=== PATIENT | female | born 1950 | race Native Hawaiian/Other Pacific Islander ===

== ENCOUNTER → 2016-09-30 | Outpatient (CLI) | payer MEDICARE, OTHER ==
--- NOTE | 2016-10-01 12:22 | RAD ---
EXAM DESCRIPTION: Pelvis CLINICAL HISTORY: SEGMENTAL AND SOMATIC DYSFUNCTION OF PELVIC REGION COMPARISON: None. IMPRESSION: Single AP supine view of the pelvis shows no evidence of acute fracture, focal bone destruction, or joint dislocation. Mild narrowing of the joints bilaterally suggests mild osteoarthritic-type changes. Degenerative changes involving the mid to inferior aspect of the sacroiliac joints is seen bilaterally. Electronically signed by: Cipriano Crawley MD 10/01/2016 12:20 PM CDT
--- NOTE | 2016-10-01 13:05 | RAD ---
EXAM DESCRIPTION: Lumbar Spine 3 Views CLINICAL HISTORY: 66 years Female, Segmental and somatic dysfunction of lumbar region COMPARISON: None. FINDINGS: 3 views of the lumbar spine show vertebral body heights to be maintained. There is mild disc space narrowing at L3-4. Moderate disc space narrowing is seen at L4-5 with to 7 mm anterolisthesis of L4 on L5. Facet hypertrophic and degenerative changes at this level are noted. There is also at least mild facet arthropathy at L5-S1. Moderate vascular calcifications are seen. Surgical clips from cholecystectomy are noted. IMPRESSION: Disc disease and facet arthropathy with grade 1 spondylolisthesis at L4-5 is seen. Facet arthropathy at L5-S1 is seen. Electronically signed by: Cipriano Crawley MD 10/01/2016 1:04 PM CDT
== END | disposition home or self-care (01) ==
LOC: RAD 15:07
PROVIDERS: ATTEND Family Medicine
DX: M99.03 Segmental and somatic dysfunction of lumbar region (principal); M99.05 Segmental and somatic dysfunction of pelvic region

== ENCOUNTER → 2016-10-05 | Outpatient (CLI) | payer MEDICARE, OTHER ==
--- NOTE | 2016-10-06 04:46 | MRI ---
Procedure: MR LUMBAR SPINE WITHOUT IV CONTRAST Exam Date: 10/05/2016 10:28 AM CDT Ordering Provider: MIRACLE GARCIA Clinical Indication: LOW BACK PAIN Comparison: None Technique: Multiplanar, multisequence MR images of the lumbar spine were obtained. Findings: No evidence of vertebral body compression deformity or acute fracture. Disc desiccation predominantly at L4-L5. Spinal cord terminates at the L1-L2 level and is normal in signal morphology. Cauda equina separate appropriately. T12-L1: Unremarkable. L1-L2: Unremarkable. L2-L3: Trace disc bulge without stenosis. L3-L4: Trace disc bulge with mild facet arthrosis. No stenosis. L4-L5: Advanced facet arthrosis with degenerative anterolisthesis. There is a midline facet synovial cyst without significant impingement on the thecal sac. There is broad-based disc uncovering. There is overall mild spinal canal stenosis and subarticular recess stenosis. Bilateral foramina are patent. L5-S1: Advanced facet arthrosis with periarticular bone marrow and soft tissue edema, right greater than left. No stenosis. Prevertebral and paravertebral soft tissues are unremarkable. Impression: Multilevel/multifactorial lumbar spondylosis greatest at the L4-L5 and L5-S1 level. There is degenerative anterolisthesis at L4-L5 as well as bone marrow and periarticular facet edema related to osteoarthritis at L5-S1 as outlined. Electronically signed by: Facundo Bender MD 10/06/2016 4:45 AM CDT
== END | disposition home or self-care (01) ==
LOC: MRI 10:13
PROVIDERS: ATTEND Family Medicine
DX: M47.896 Other spondylosis, lumbar region (principal)

== ENCOUNTER → 2016-10-07 | Outpatient (CLI) | payer MEDICARE, OTHER ==
--- NOTE | 2016-10-08 09:08 | US ---
EXAM DESCRIPTION: Abdomen sonogram complete CLINICAL HISTORY: Abdominal aortic aneurysm COMPARISON: [None.] FINDINGS: Gallbladder is surgically absent . Common bile duct measures 7-8 mm in the sweetie hepatis. Liver is normal in size and echotexture Pancreas is partially visualized, unremarkable. Spleen normal in size and echotexture. Visualized abdominal aorta and inferior vena cava are normal in size. Minimal atherosclerosis. No aneurysm Right kidney and left kidney are normal in size and echotexture IMPRESSION: No abdominal aortic aneurysm Unremarkable abdomen sonogram Electronically signed by: Gorge Enciso MD 10/08/2016 9:07 AM CDT
== END | disposition home or self-care (01) ==
LOC: US 08:17
PROVIDERS: ATTEND Family Medicine
DX: I71.4 Abdominal aortic aneurysm, without rupture (principal)

== ENCOUNTER → 2017-02-15 | Outpatient (CLI) | payer MEDICARE, OTHER | END | disposition home or self-care (01) | LOC: GMAL 15:33 | PROVIDERS: ATTEND Family Medicine | DX: E03.8 Other specified hypothyroidism (principal); D51.3 Other dietary vitamin B12 deficiency anemia ==

== ENCOUNTER → 2017-02-23 | Outpatient (CLI) | payer MEDICARE, OTHER | END | disposition home or self-care (01) | LOC: GMAL 14:21 | PROVIDERS: ATTEND Family Medicine | DX: D53.9 Nutritional anemia, unspecified (principal) ==

== ENCOUNTER → 2017-03-09 | Outpatient (CLI) | payer MEDICARE, OTHER | LOC: LAB.O 13:28 | PROVIDERS: ATTEND Family Medicine | DX: E83.119 Hemochromatosis, unspecified (principal) ==

== ENCOUNTER → 2017-04-07 | Outpatient (CLI) | payer MEDICARE, OTHER ==
--- NOTE | 2017-04-07 17:01 | CT ---
EXAM DESCRIPTION: Head w/wo Contrast CLINICAL HISTORY: 66 years Female, MIGRAINE WITH AURA, NOT INTRACTABLE, WITHOUT STATUS MIGRAINOSUS COMPARISON: None. TECHNIQUE: Transaxial images were obtained with and without intravenous contrast media. Sagittal and coronal reconstruction was performed.This exam was performed according to our departmental dose-optimization program, which includes automated exposure control, adjustment of the mA and/or kV according to patient size and/or use of iterative reconstruction technique. FINDINGS: Portions of the paranasal sinuses and the orbits as imaged are normal. The mastoid sinus air cells are clear. No mass lesions or mass effect are observed. The ventricles and cisternal spaces within range of normal. No white matter abnormality is detected. No abnormal enhancement is detected. IMPRESSION: Normal pre and post contrasted cerebral computed tomography. Electronically signed by: Dakota Pinto MD 04/07/2017 5:00 PM [facility]
== END ==
LOC: LAB.O 15:27
PROVIDERS: ATTEND Family Medicine
DX: G43.109 Migraine with aura, not intractable, without status migrainosus (principal)

== ENCOUNTER → 2017-10-12 | Outpatient (CLI) | payer MEDICARE, OTHER ==
--- NOTE | 2017-10-13 08:26 | US ---
EXAM DESCRIPTION: Breast,Right: Ultrasound CLINICAL HISTORY: 67 yearsFemaleBREAST LUMP. Recent trauma to this region of the breast. COMPARISON: Digital diagnostic tomosynthesis bilateral breast on the same visit. TECHNIQUE: Transcutaneous scanning of the right breast utilizing plasencia-scale and Doppler modes. Scanning performed by the chemistry technical officer and Dr. Squires. FINDINGS: Scanning 1200 clock position 2 cm from the nipple at area of skin discoloration and palpable mass. Echogenic mass with lobulated borders and central hypoechoic or anechoic compartments. Not vascular. Dimensions from the outer margins are 1.8 x 1.4 x 0.8 cm.. This is consistent with a hematoma partially liquefied. Parallel orientation. Mixed posterior enhancement and shadowing features. No large calcifications. No abnormal vascularity. Most likely a partially liquefied hematoma. IMPRESSION: BI-RADS CATEGORY: 3 - PROBABLY BENIGN. Management: Short interval (6-month) digital diagnostic right breast mammography and targeted right breast ultrasound. The FINDINGS and the FOLLOW-UP plan were reviewed in person with the patient after the examination. Written communication explaining the IMPRESSION and FOLLOW-UP will be mailed to the patient and referring care provider. Electronically signed by: Adrian Squires MD 10/13/2017 8:25 AM CDT
--- NOTE | 2017-10-13 11:45 | MAM ---
EXAM DESCRIPTION: 3D Diagnostic, Bilateral: Digital Mammography CLINICAL HISTORY: 67 [id number] . Patient ran into metal shaft. Bruised anterior right breast near the nipple. A palpable mass developed under the skin.. No personal history or family history of breast cancer. Remote family history of ovarian cancer. Childbirth. Postmenopausal. Currently on HRT. Risk evaluation for developing breast cancer in lifetime based upon Tyrer - Cuzick model is 6%. COMPARISON: 2-D digital screening bilateral study 02/04/2014. . Targeted right breast ultrasound following this examination TECHNIQUE: Bilateral CC LM MLO projection full-field images, digital mammographic tomosynthesis technique. Bilateral full-field 2-D digital MLO images. Skin marker placed where mass palpable anterior right breast. CAD not utilized. FINDINGS: The breast parenchymal density pattern is: Scattered areas of fibroglandular density. No skin thickening or nipple retraction bilateral axillary lymph nodes. Focal asymmetry posterior to the right nipple stable since prior study. Focal asymmetry associated with the skin marker is new since the prior study at the 7629-7891 clock position of the retroareolar right breast. Bilateral solitary microcalcifications. No new focal, stellate mass or density, focal asymmetry , and no suspicious microcalcifications left breast. ULTRASOUND: Scanning 1200 clock position 2 cm from the nipple at area of skin discoloration and palpable mass. Echogenic mass with lobulated borders and central hypoechoic or anechoic compartments. Not vascular. Dimensions from the outer margins are 1.8 x 1.4 x 0.8 cm.. This is consistent with a hematoma partially liquefied. Parallel orientation. Mixed posterior enhancement and shadowing features. No large calcifications. No abnormal vascularity. Most likely a partially liquefied hematoma. IMPRESSION: BI-RADS CATEGORY: 3 - PROBABLY BENIGN. Management: Short interval (6-month) digital diagnostic right breast mammography and targeted right breast ultrasound.. The FINDINGS and the FOLLOW-UP plan were reviewed in person with the patient after the examination. Written communication explaining the IMPRESSION and FOLLOW-UP will be mailed to the patient and referring care provider. Electronically signed by: Adrian Squires MD 10/13/2017 11:44 AM CDT
== END ==
LOC: US 14:30
PROVIDERS: ATTEND Physician Assistant
DX: N63.12 Unspecified lump in the right breast, upper inner quadrant (principal)
CPT/HCPCS: 76641; 77066; G0279

== ENCOUNTER → 2018-06-26 | Outpatient (CLI) | payer MEDICARE, OTHER ==
--- NOTE | 2018-06-29 11:32 | MAM ---
EXAM DESCRIPTION: Breast,Right (accession [id number]), 3D Diagnostic, Right (accession [id number]): Ultrasound CLINICAL HISTORY: 67 yearsFemaleF/U ABNORMAL MAMMO. Six-month follow-up. Abnormal nodule anterior superior right breast, posttraumatic. COMPARISON: Prior targeted right breast ultrasound 10/12/2017/. Bilateral diagnostic digital breast tomosynthesis 10/12/2017. TECHNIQUE: Right breast LM, CC, and MLO projection full-field images, digital mammographic tomosynthesis technique. Left breast 2-D digital full-field MLO image. CAD not utilized. . Transcutaneous scanning of the right breast utilizing plasencia-scale mode. Scanning performed by the travel ticketing reviewer and Dr. Squires. FINDINGS: The breast parenchymal density pattern is: Scattered areas of fibroglandular density. No skin thickening or nipple retraction The density associated with the skin marker on the prior study is significantly decreased in size. Persistent density lateral to the nipple. No abnormal microcalcifications. Remainder of the right breast is stable since the prior study. Ultrasound: Scanning of the superior right breast from the nipple to 2 cm posterior. Complex signal object seen on the prior study is no longer visualized. Mostly fatty echotexture with minimal fibroglandular tissues. No dominant solid mass or distinct cyst. No parenchymal edema or large calcifications. No overlying skin changes. IMPRESSION: Benign exam. BIRAD CATEGORY: 2 BENIGN FINDINGS. RECOMMENDATIONS: FOLLOW UP: Return to routine digital bilateral mammographic screening, in September 2018. Written communication explaining the IMPRESSION and follow-up, will be mailed to the patient and referring health care provider. The FINDINGS and the FOLLOW-UP plan were reviewed in person with the patient after the examination. According to the [employer], yearly mammograms are recommended starting at age 40 and continuing as long as a woman is in good health. Any breast change noted on a breast self-exam should be reported promptly to the patient's healthcare provider. Breast MRI is recommended for women with an approximately 20-25% or greater lifetime risk of breast cancer, including women with a strong family history of breast or ovarian cancer and women who have been treated for Hodgkin's disease. A negative mammographic report should not delay tissue diagnosis in patients with significant clinical history or physical findings. Extremely dense breast tissue limits the sensitivity of digital mammography. Electronically signed by: Adrian Squires MD 06/29/2018 11:30 AM CDT
== END ==
LOC: MAMMO 09:29
PROVIDERS: ATTEND Family Medicine
DX: R92.8 Other abnormal and inconclusive findings on diagnostic imaging of breast (principal)
CPT/HCPCS: 76641; 77065; G0279

== ENCOUNTER 2020-01-19 17:58 | Emergency (ER) | payer MEDICARE, OTHER ==
--- NOTE | 2020-01-19 18:52 | RAD ---
EXAM: XR Chest, 1 View CLINICAL HISTORY: The patient is 69 years old and is Female; dyspnea and cough TECHNIQUE: Single view of the chest. COMPARISON: October 27, 2012. FINDINGS: Lungs: Hazy bilateral airspace opacities. Pleural space: No pleural effusion or pneumothorax. Heart: Unremarkable. No cardiomegaly. Mediastinum: Unremarkable. Bones/joints: No acute fracture visualized. Upper abdomen: No free air in the visualized upper abdomen. IMPRESSION: Hazy bilateral airspace opacities. Correlate clinically for infection. Electronically signed by: Francie Walsh MD 01/19/2020 6:51 PM [facility]
[2020-01-19] MEDS ORDERED: DEXAMETHASONE INJ 10 MG/ML VIAL IV ONE (18:58)
--- NOTE | 2020-01-19 19:19 | ED.PDOC ---
History of Present Illness - General Chief Complaint: Respiratory Problem Stated Complaint: difficulty breathing Time Seen by Provider: 01/19/20 18:10 Source: patient, RN notes reviewed, Vital Signs reviewed, family - daughter who is a RN. Exam Limitations: no limitations - History of Present Illness Initial Comments: Patient is a 69-year-old white female who presents with complaints of shortness of breath and generalized weakness and fatigue. The symptoms been ongoing for the last 4 to 5 days. She was tested 2 days ago and found to have Covid. Symptoms are worse when she exerts herself. She becomes more short of breath with any type of exertion which is mildly improved with rest. Timing/Duration: 1 week, getting worse Severity: moderate Improving Factors: rest Worsening Factors: movement Associated Symptoms: cough, malaise, shortness of breath, weakness Allergies/Adverse Reactions: Allergies NO KNOWN ALLERGY Allergy (Unverified 10/27/12 09:09) Home Medications: Ambulatory Orders Hydrochlorothiazide 12.5 mg PO DAILY 10/30/12 Levothyroxine Sodium [Synthroid] 50 mcg PO DAILY 10/30/12 Methylprednisolone [Medrol Dose Isai] 4 mg PO DAILY 6 Days #21 tab 01/19/20 Review of Systems - Review of Systems Constitutional: States: see HPI, malaise, weakness. Denies: chills, fever EENTM: States: no symptoms reported. Denies: eye pain, blurred vision, double vision Respiratory: States: see HPI, cough, short of breath. Denies: stridor, wheezing Cardiology: States: no symptoms reported. Denies: chest pain, palpitations, syncope Gastrointestinal/Abdominal: States: no symptoms reported. Denies: abdominal pain, diarrhea, nausea, other Genitourinary: States: no symptoms reported. Denies: dysuria, frequency Musculoskeletal: States: no symptoms reported. Denies: back pain, joint pain, joint swelling, neck pain Skin: States: no symptoms reported. Denies: change in color, rash Neurological: States: see HPI, weakness. Denies: tingling, tremors Endocrine: States: no symptoms reported. Denies: increased hunger, increased thirst, increased urine Hematologic/Lymphatic: States: no symptoms reported. Denies: blood clots, easy bleeding All other Systems: Reviewed and Negative Past Medical History (General) - Patient Medical History Hx Stroke: No Hx Congestive Heart Failure: No Hx Hypertension: Yes Hx Diabetes: No Surgical History: cholecystectomy, Hysterectomy, other - Vaccination History Hx Influenza Vaccination: No Hx Pneumococcal Vaccination: No - Social History Hx Tobacco Use: No Family Medical History - Family History Mother Living Status: Hx Family Hypertension: Yes Father Family History: No Known Living Status: Hx Family Hypertension: Yes Physical Exam - Physical Exam General Appearance: Alert, Anxious, Obvious distress, Well Developed, Well Groo med, Well Nourished Eye Exam: bilateral normal, bilateral abnormal EOM Ears, Nose, Throat: hearing grossly normal, normal ENT inspection, normal phary nx Neck: non-tender, full range of motion, supple Respiratory: chest non-tender, respiratory distress - moderate. Pt is 84% on Room air, resting at bedside, rhonchi - diffusely throughout Cardiovascular/Chest: normal peripheral pulses, regular rate, rhythm, no edema, no gallop, no JVD, no murmur Peripheral Pulses: radial,right: 2+, radial,left: 2+ Gastrointestinal/Abdominal: normal bowel sounds, non tender, soft Back Exam: normal inspection, no CVA tenderness, no vertebral tenderness Extremity: normal range of motion, non-tender, normal inspection, no pedal edema Neurologic: qualitative field project manager II-XII nml as tested, no motor/sensory deficits, alert, normal mood/affect, oriented x 3 Skin Exam: normal color, warm/dry Lymphatic: no adenopathy Progress - Progress Progress: Differential diagnosis: Pneumonia, Covid, viral URI, influenza pneumonia among others. 01/19/20 20:02 Patient with hypoxia on room air. Otherwise patient is feeling well and desires discharge home. Patient did desat on her oxygen testing. She was 84% on room air resting at bedside but otherwise was comfortable. Patient has been given monoclonal antibodies IV and she will discharge home with an oxygen concentrator. I discussed this plan of care with her and her daughter, who is a RN, and they agree with the plan of care. Patient to follow-up with PCP on Tuesday. I will start the patient on Medrol tomorrow. Patient is already on Zithromax. Sumeet Roth M.D. #[id number] - Results/Orders Results/Orders: EXAM: XR Chest, 1 View CLINICAL HISTORY: The patient is 69 years old and is Female; dyspnea and cough TECHNIQUE: Single view of the chest. COMPARISON: October 27, 2012. FINDINGS: Lungs: Hazy bilateral airspace opacities. Pleural space: No pleural effusion or pneumothorax. Heart: Unremarkable. No cardiomegaly. Mediastinum: Unremarkable. Bones/joints: No acute fracture visualized. Upper abdomen: No free air in the visualized upper abdomen. IMPRESSION: Hazy bilateral airspace opacities. Correlate clinically for infection. Electronically signed by: Francie Walsh MD 01/19/2020 6:51 01/19/20 18:10 SARS-COV2 RT-PCR HIGH RISK Stat 01/19/20 18:11 Oxygen Delivery Assessment: QSHIFT 01/19/20 18:15 EKG STAT Oxygen STAT Pulse Ox, Continuous Monitoring STAT 01/19/20 18:34 ambulation study [Home O2 Qualify] ONCE 01/20/20 18:15 Oxygen STAT Pulse Ox, Continuous Monitoring STAT 01/21/20 18:15 Pulse Ox, Continuous Monitoring STAT Laboratory Results - last 24 hr 01/19/20 01/19/20 01/19/20 18:16 18:16 18:16 WBC 3.8 L RBC 3.03 L Hgb 10.2 L Hct 29.3 L MCV 96.7 MCH 33.6 H MCHC 34.8 RDW 18.3 H Plt Count 183 MPV 8.3 Absolute Neuts (auto) 2.70 Absolute Lymphs (auto) 0.80 L Absolute Monos (auto) 0.30 Absolute Eos (auto) 0.00 Absolute Basos (auto) 0.00 Neutrophils % 70.6 Lymphocytes % 21.9 Monocytes % 6.6 Eosinophils % 0.1 L Basophils % 0.8 PTT (SP) 34.0 H D-Dimer, Quantitative 1100.0 H* Sodium 130 L Potassium 3.2 L Chloride 91 L Carbon Dioxide 22 Anion Gap 20.2 H BUN 10 Creatinine 0.72 BUN/Creatinine Ratio 13.9 Random Glucose 99 Serum Osmolality 259.9 L Calcium 8.1 L Magnesium 1.8 Total Bilirubin 1.2 H AST 52 H ALT 42 Alkaline Phosphatase 137 H LD Total 358 H D Creatine Kinase 159 H Troponin I C-Reactive Protein 16.4 H* B-Natriuretic Peptide 24.1 Serum Total Protein 6.8 Albumin 3.3 Globulin 3.5 Albumin/Globulin Ratio 0.9 L 01/19/20 18:16 WBC RBC Hgb Hct MCV MCH MCHC RDW Plt Count MPV Absolute Neuts (auto) Absolute Lymphs (auto) Absolute Monos (auto) Absolute Eos (auto) Absolute Basos (auto) Neutrophils % Lymphocytes % Monocytes % Eosinophils % Basophils % PTT (SP) D-Dimer, Quantitative Sodium Potassium Chloride Carbon Dioxide Anion Gap BUN Creatinine BUN/Creatinine Ratio Random Glucose Serum Osmolality Calcium Magnesium Total Bilirubin AST ALT Alkaline Phosphatase LD Total Creatine Kinase Troponin I < 0.02 C-Reactive Protein B-Natriuretic Peptide Serum Total Protein Albumin Globulin Albumin/Globulin Ratio Vital Signs 01/19/20 01/19/20 18:15 18:40 Temperature 97.3 F L Pulse Rate [ 69 right brachial] Respiratory 20 20 Rate Blood Pressure 132/63 [right brachial ] O2 Sat by Pulse 89 L Oximetry Departure - Departure Clinical Impression: COVID-19, Hypoxia Time of Disposition: 20:04 Disposition: Discharge to Home or Self Care Condition: Fair Departure Forms: ED Discharge - Pt. Copy, Patient Portal Self Enrollment Instructions: Coronavirus Disease 2019 (COVID-19), Shortness of Breath (Dyspnea) (DC) Diet: resume usual diet Activity: increase activity as tolerated Referrals: Dakota Merrill III, MD [Primary Care Provider] - 1-5 Days Prescriptions: Methylprednisolone [Medrol Dose Isai] 4 mg PO DAILY 6 Days #21 tab Home Medications: Ambulatory Orders Hydrochlorothiazide 12.5 mg PO DAILY 10/30/12 Levothyroxine Sodium [Synthroid] 50 mcg PO DAILY 10/30/12 Methylprednisolone [Medrol Dose Isai] 4 mg PO DAILY 6 Days #21 tab 01/19/20
[2020-01-19 21:58] VITALS: BP 131/62; TEMP 97; O2SAT 93
== END 2020-01-19 21:58 | disposition home or self-care (01) ==
LOC: ER 17:58
DX: U07.1 COVID-19 (principal); R09.02 Hypoxemia; I10 Essential (primary) hypertension
CPT/HCPCS: 71045; 80053; 82550; 83615; 83735; 83880; 84484; 85025; 85379; 85730; 86140; J1100

== ENCOUNTER → 2020-02-25 | Outpatient (CLI) | payer MEDICARE, OTHER | LOC: GMAL 10:33 | PROVIDERS: ATTEND Family Medicine | DX: D51.3 Other dietary vitamin B12 deficiency anemia (principal); D53.9 Nutritional anemia, unspecified; E55.9 Vitamin D deficiency, unspecified; E03.8 Other specified hypothyroidism; Z79.899 Other long term (current) drug therapy ==